=== PATIENT | female | born 1975 | race Caucasian/White ===

== ENCOUNTER → 2017-10-31 10:01 | Outpatient (CLI) | payer OTHER, SELFPAY ==
[2017-10-31 12:05] LABS: Vitamin D,25 Hydroxy 18.4 ng/mL (29.95-100.01)
== END ==
PROVIDERS: Family Provider Internal Medicine; PCP Internal Medicine; Visit Provider Internal Medicine
DX: E83.51 Hypocalcemia (principal)
CPT/HCPCS: 36415; 82306

== ENCOUNTER → 2017-11-04 13:48 | Outpatient (CLI) | payer OTHER, SELFPAY ==
--- NOTE | 2017-11-04 13:51 | BI_ITS ---
MAMMOGRAPHY - BILATERAL SCREENING REASON FOR EXAM: Female, 42 years old. Routine annual screening examination. PERTINENT HISTORY: Non-contributory. Prior right stereotactic biopsy and excisional breast biopsy. TECHNIQUE: Digital bilateral breast ashley (3D mammographic acquisition) in the CC and MLO projections. 2-D mediolateral oblique (MLO) and craniocaudad (CC) views of both breasts were obtained. CAD: Full Field Digital Mammography with Computer Added Detection was performed. COMPARISON: Comparison is made with prior study dated October 14, 2016 and June 23, 2015. FINDINGS: Breast Composition: There are scattered areas of fibroglandular density. There are no dominant masses or suspicious calcifications. Stable asymmetry of breast tissue were more breast tissue is seen in the upper outer quadrant of the left breast as compared to the right side. No other significant abnormalities are identified. There has been no significant change since the prior study. BI/SCREENING MAMM (CAD), BILAT IMPRESSION: Stable bilateral screening mammogram. Yearly follow-up mammogram recommended. (A) ASSESSMENT CATEGORY: BIRADS Category 2: Benign. A letter regarding these results will be sent to the patient by the facility within 30 days. Approximately 10% of breast cancers are not detected by mammography. A normal mammogram should not delay biopsy of a clinically suspicious abnormality. [id number] Electronically Signed: Valdez Burris MD at 10:21 EDT Tel [phone], Service support ,
== END ==
PROVIDERS: Family Provider Internal Medicine; PCP Internal Medicine; Visit Provider Obstetrics & Gynecology
DX: Z12.31 Encounter for screening mammogram for malignant neoplasm of breast (principal)
CPT/HCPCS: 77063; 77067

== ENCOUNTER → 2018-05-24 16:26 | Outpatient (CLI) | payer OTHER, SELFPAY ==
[2018-04-12 17:43] VITALS: BMI 32.3
--- NOTE | 2018-05-24 16:28 | US_ITS ---
STUDY: ULTRASOUND OF THE FEMALE PELVIS - COMPLETE REASON FOR EXAM: Female, 43 years old. Heavy menses. History of IUD. LMP: April 30, 2017. TECHNIQUE: Transabdominal. Patient refused transvaginal ultrasound. TECHNICAL QUALITY: Adequate. COMPARISON: None. FINDINGS: The uterus is anteverted and is in a midline position. The uterus measures 9.6 x 5.4 x 5.0 cm. cm. Normal uterine cervix. The endometrium measures 3 mm in thickness, and is hyperechoic. There is no demonstrated endometrial mass. There is an anterior 1.1 x 1.6 x 1.1 cm fibroid. I.U.D. - there is an IUD in satisfactory position. The right ovary is visualized. The right ovary measures 3.7 x 3.1 x 2.2 cm. There is a 1.6 x 1.3 x 1.5 cm dominant follicle versus small cyst. There is no visualized right adnexal mass or complex lesion. There is normal arterial and normal venous vascularity. The left ovary is visualized. The left ovary measures 2.7 x 2.2 x 1.8 cm. There is no left ovarian cyst or ovarian mass. There is no visualized left adnexal mass or complex lesion. There is normal arterial and normal venous vascularity. There is no fluid in the cul-de-sac. The pre void volume of the bladder was 329 ml. The urinary bladder appears grossly normal. Polycystic ovary disease: No. US/Pelvic (Non ) IMPRESSION: 1. Normal uterus. The IUD is in satisfactory position. 2. Dominant follicle in the right ovary without other evidence of ovarian abnormality. Electronically Signed: Cecil Starkey DO at 22:16 EDT Tel [phone], Service support ,
== END ==
PROVIDERS: Family Provider Internal Medicine; PCP Internal Medicine; Referring Provider Obstetrics & Gynecology; Visit Provider Obstetrics & Gynecology
DX: R10.2 Pelvic and perineal pain (principal)
CPT/HCPCS: 76856; 93976

== ENCOUNTER → 2018-09-08 07:41 | Outpatient (CLI) | payer OTHER, SELFPAY ==
[2018-04-12 17:43] VITALS: BMI 32.3
[2018-09-08 09:24] LABS: T4 Free Direct 1.06 ng/dL (0.76-1.46); Thyroid Stim Hormone (TSH) 1.27 uIU/mL (0.358-3.74)
== END ==
PROVIDERS: Family Provider Internal Medicine; PCP Internal Medicine; Referring Provider Obstetrics & Gynecology; Visit Provider Obstetrics & Gynecology
DX: N92.6 Irregular menstruation, unspecified (principal)
CPT/HCPCS: 36415; 84439; 84443

== ENCOUNTER → 2018-11-06 15:00 | Outpatient (CLI) | payer OTHER, SELFPAY ==
[2018-09-14 16:29] VITALS: BMI 29.8
--- NOTE | 2018-11-06 15:02 | BI_ITS ---
MAMMOGRAPHY - BILATERAL SCREENING REASON FOR EXAM: Female, 43 years old. Routine annual screening examination. PERTINENT HISTORY: Non-contributory. Prior right excisional breast biopsy and right stereotactic breast biopsy. Occasional lateral tenderness. TECHNIQUE: Digital bilateral breast cole (3D mammographic acquisition) in the CC and MLO projections. 2-D mediolateral oblique (MLO) and craniocaudad (CC) views of both breasts were obtained. CAD: Full Field Digital Mammography with Computer Added Detection was performed. COMPARISON: Comparison is made with prior study dated November 04, 2017 and October 14, 2016. FINDINGS: Breast Composition: The breasts are heterogeneously dense, which may obscure small masses. There are no dominant masses or suspicious calcifications. Stable asymmetry of breast tissue were more breast tissue is seen in the upper outer quadrant of the left breast as compared to the right side. No other significant abnormalities are identified. There has been no significant change since the prior study. BI/SCREEN MAMM (CAD) W/COLE BILAT IMPRESSION: Stable bilateral screening mammogram. Yearly follow-up mammogram recommended. (A) ASSESSMENT CATEGORY: BIRADS Category 2: Benign. A letter regarding these results will be sent to the patient by the facility within 30 days. Approximately 10% of breast cancers are not detected by mammography. A normal mammogram should not delay biopsy of a clinically suspicious abnormality. [id number] Electronically Signed: Valdez Burris, at 8:41 EDT , Service support ,
== END ==
PROVIDERS: Family Provider Internal Medicine; PCP Internal Medicine; Referring Provider Internal Medicine; Visit Provider Internal Medicine
DX: Z12.31 Encounter for screening mammogram for malignant neoplasm of breast (principal)
CPT/HCPCS: 77063; 77067

== ENCOUNTER → 2018-11-13 17:44 | Outpatient (CLI) | payer OTHER, SELFPAY ==
[2018-09-14 16:29] VITALS: BMI 29.8
== END ==
PROVIDERS: Family Provider Internal Medicine; PCP Internal Medicine; Referring Provider Obstetrics & Gynecology; Visit Provider Obstetrics & Gynecology
DX: Z12.4 Encounter for screening for malignant neoplasm of cervix (principal)

== ENCOUNTER → 2019-03-29 09:36 | Outpatient (CLI) | payer OTHER, SELFPAY ==
[2019-03-28 14:35] VITALS: BMI 30.7
--- NOTE | 2019-03-29 09:39 | EKG12_ITS ---
Test Reason : TACHY Blood Pressure : / mmHG Vent. Rate : 096 BPM Atrial Rate : 096 BPM P-R Int : 148 ms QRS Dur : 090 ms QT Int : 348 ms P-R-T Axes : 066 007 044 degrees QTc Int : 439 ms Normal sinus rhythm Low voltage QRS Borderline ECG Confirmed by TOMAS BRICE, ROSALIO ([id number]), film editor supervisor JESSICA JARVIS ([id number]) on 04/02/2019 2:03:59 PM Referred By: Melchor Mortensen Confirmed By:ANGELA MARIN MD
== END ==
PROVIDERS: PCP Internal Medicine; Referring Provider Nurse Practitioner Family; Visit Provider Nurse Practitioner Family
DX: R00.2 Palpitations (principal)
CPT/HCPCS: 93005

== ENCOUNTER → 2019-11-16 12:55 | Outpatient (CLI) | payer OTHER, SELFPAY ==
[2019-09-13 16:55] VITALS: BMI 30.7
--- NOTE | 2019-11-16 12:55 | BI_ITS ---
MAMMOGRAPHY - BILATERAL SCREENING REASON FOR EXAM: Female, 44 years old. Routine annual screening examination. PERTINENT HISTORY: Non-contributory. TECHNIQUE: Digital bilateral breast cole (3D mammographic acquisition) in the CC and MLO projections. 2-D mediolateral oblique (MLO) and craniocaudad (CC) views of both breasts were obtained. CAD: Full Field Digital Mammography with Computer Added Detection was performed. COMPARISON: Comparison is made with prior study 11/06/2018 and 10/27/2017. FINDINGS: Breast Composition: The breasts are heterogeneously dense, which may obscure small masses. There are no dominant masses or suspicious calcifications. No other significant abnormalities are identified. There has been no significant change since the prior study. BI/SCREEN MAMM (CAD) W/COLE BILAT IMPRESSION: Stable bilateral screening mammogram. Yearly follow-up mammogram recommended. (A) ASSESSMENT CATEGORY: BIRADS Category 1: Negative. A letter regarding these results will be sent to the patient by the facility within 30 days. Approximately 10% of breast cancers are not detected by mammography. A normal mammogram should not delay biopsy of a clinically suspicious abnormality. [id number] Electronically Signed: Valdez Burris, at 13:48 EDT , Service support ,
== END ==
PROVIDERS: PCP Internal Medicine; Referring Provider Internal Medicine; Visit Provider Internal Medicine
DX: Z12.31 Encounter for screening mammogram for malignant neoplasm of breast (principal)
CPT/HCPCS: 77063; 77067

== ENCOUNTER 2019-12-17 16:30 | Outpatient (RCR) | payer OTHER, SELFPAY ==
[2019-04-02 15:42] VITALS: BMI 30.7
--- NOTE | 2019-08-03 11:00 | MASS.EVAL ---
Massage Therapy Evaluation: Initial Evaluation Date: 07/30/2019 SUBJECTIVE: Lily is a 44 year old female who was referred to the [facility] facility for a massotherapy evaluation by Dr. Melchor Mortensen with the diagnosis of having muscle spasms. She presents today with the symptoms of pain, stiffness and tension in the neck and mid back area. h OBJECTIVE: Upon observation Lily has some posture issues with her head and shoulders forward from the neutral position in sitting and standing. After examination and palpation, I found Lily to have high muscle tension with tenderness and myofascial restrictions in her pectorals, sub occipitals, levator scapulae, trapezius, rhomboids, scalenes, and thoracic paraspinals. Her QL?s, lumbar paraspinals, piriformis, glute medius and minimus all were very tight with fascial restrictions, tender points and trigger points. The first treatment consisted of a one hour massage to her upper body with myofascial release, muscle stripping, trigger point compression techniques, and cervical manual traction. ASSESSMENT: I feel that Lily is a good candidate for massotherapy at this time. She had a favorable response to the first treatment with reduction in her muscle aches, pain and tension. She also had improvement in her cervical flexibility and low back flexibility. PLAN: The plan of care was reviewed with the patient. The patient is to be seen on an as needed basis for a total of ten sessions with the recommendation of one-two times per month for a one hour treatment.
--- NOTE | 2020-01-26 09:58 | MASS.DISCH ---
Massage Therapy Discharge Summary: Discharge Date: 01/26/2020 Lily was seen for a massotherapy evaluation on 07/30/2019 with the diagnosis of a muscle spasms. She was treated with four sessions of massage therapy consisting of deep pressure soft tissue techniques, myofascial release and trigger point compression to her cervical, thoracic, lower back and hips. Lily responded well to the therapy by reporting decreased tension and pain throughout her neck, shoulders, lower back and hips. Her goals for therapy were met throughout the treatment sessions. At this time this patient is being discharged from our care at [facility] facility.
== END 2019-12-17 19:00 | disposition home or self-care (01) ==
LOC: MASS 16:30
PROVIDERS: PCP Internal Medicine; Referring Provider Nurse Practitioner Family; Visit Provider Nurse Practitioner Family
DX: M62.838 Other muscle spasm (principal)
CPT/HCPCS: 97124

== ENCOUNTER → 2020-05-09 13:49 | Outpatient (CLI) | payer OTHER, SELFPAY ==
[2020-03-13 16:34] VITALS: BMI 32.3
[2020-05-12 20:06] LABS: Chlamydia By Nucleic Acid AMP Negative (Negative)
[2020-05-12 20:36] LABS: Gonococcus By Nucleic Acid AMP Negative (Negative)
== END ==
PROVIDERS: PCP Internal Medicine; Visit Provider Student in an Organized Health Care Education/Training Program
DX: Z11.3 Encounter for screening for infections with a predominantly sexual mode of transmission (principal)
CPT/HCPCS: 87491; 87591

== ENCOUNTER → 2020-11-20 15:33 | Outpatient (CLI) | payer OTHER, SELFPAY ==
[2020-09-11 16:33] VITALS: BMI 32.3
--- NOTE | 2020-11-20 15:33 | BI_ITS ---
MAMMOGRAPHY - BILATERAL SCREENING REASON FOR EXAM: Female, 45 years old. Routine annual screening examination. PERTINENT HISTORY: Non-contributory. TECHNIQUE: Digital bilateral breast cole (3D mammographic acquisition) in the CC and MLO projections. 2-D mediolateral oblique (MLO) and craniocaudad (CC) views of both breasts were obtained. CAD: Full Field Digital Mammography with Computer Added Detection was performed. COMPARISON: Comparison is made with prior study dated 11/16/2019 and 11/06/2018. FINDINGS: Breast Composition: The breasts are heterogeneously dense, which may obscure small masses. There are no dominant masses or suspicious calcifications. Stable asymmetry of breast tissue were more breast tissue is seen in the upper outer quadrant of the left breast as compared to the right side. Small benign-appearing bilateral axillary lymph nodes. No other significant abnormalities are identified. There has been no significant change since the prior study. BI/SCRN MAMM (CAD)W/COLE BILAT IMPRESSION: Stable bilateral screening mammogram. Yearly follow-up mammogram recommended. (A) ASSESSMENT CATEGORY: BIRADS Category 2: Benign. A letter regarding these results will be sent to the patient by the facility within 30 days. Approximately 10% of breast cancers are not detected by mammography. A normal mammogram should not delay biopsy of a clinically suspicious abnormality. [id number] Electronically Signed: Valdez Burris MD at 8:30 EDT , Service support ,
== END ==
PROVIDERS: PCP Internal Medicine; Referring Provider Internal Medicine; Visit Provider Internal Medicine
DX: Z12.31 Encounter for screening mammogram for malignant neoplasm of breast (principal)
CPT/HCPCS: 77063; 77067

== ENCOUNTER → 2020-11-28 09:07 | Outpatient (CLI) | payer OTHER, SELFPAY ==
[2020-11-28 09:54] LABS: D-Dimer Quantitative (DVT/PE) <= 0.27 FEU/ug/m (0.27-0.49)
[2020-11-28 09:56] LABS: Vitamin D,25 Hydroxy 29.6 ng/mL
[2020-11-28 10:02] LABS: AST(SGOT) 23 U/L (15-37); Alanine Aminotransfer ALT/SGPT 39 U/L (13-56); Albumin, Serum 3.5 g/dL (3.2-5.0); Alkaline Phosphatase 63 U/L (45-117); Bilirubin, Direct 0.13 mg/dL (0.00-0.30); Globulin 3.8 g/dL (2.2-4.2); Protein, Total 7.3 g/dL (6.4-8.2)
[2020-11-28 15:46] LABS: Anion Gap 7 (5-15); BUN 11 mg/dL (7-18); BUN/Creat Ratio 13.3 RATIO (10-20); Calcium,Total 8.8 mg/dL (8.5-10.1); Chloride 106 mmol/L (98-107); Creatinine, Serum 0.83 mg/dL (0.55-1.02); EST Glomerular Filtration Rate 79 mL/min (>60); Est Glom Filt Rate - Afr Amer 96 mL/min (>60); Glucose 104 mg/dL (74-106); Potassium 3.7 mmol/L (3.5-5.1); Sodium Level 138 mmol/L (136-145); Thyroid Stim Hormone (TSH) 1.23 uIU/mL (0.358-3.74)
== END ==
PROVIDERS: PCP Internal Medicine; Referring Provider Internal Medicine; Visit Provider Internal Medicine
DX: R00.0 Tachycardia, unspecified (principal); R10.11 Right upper quadrant pain; E83.51 Hypocalcemia; R00.2 Palpitations
CPT/HCPCS: 36415; 80048; 80076; 82306; 84439; 84443; 85379

== ENCOUNTER → 2020-11-28 14:02 | Outpatient (CLI) | payer OTHER, SELFPAY | PROVIDERS: PCP Internal Medicine; Visit Provider Internal Medicine | DX: Z00.00 Encounter for general adult medical examination without abnormal findings (principal) ==

== ENCOUNTER → 2020-12-02 09:19 | Outpatient (CLI) | payer OTHER, SELFPAY | PROVIDERS: PCP Internal Medicine; Referring Provider Internal Medicine; Visit Provider Internal Medicine | DX: R00.0 Tachycardia, unspecified (principal); R00.2 Palpitations | CPT/HCPCS: 93225; 93226 ==

== ENCOUNTER 2021-02-02 17:45 | Outpatient (RCR) | payer OTHER, SELFPAY ==
--- NOTE | 2020-12-22 09:36 | MASS.EVAL ---
Massage Therapy Evaluation: Initial Evaluation Date: 12/19/2020 SUBJECTIVE: Lily is a 45 year old female who was referred to the [facility] for a massotherapy evaluation by Dr. Vega with the diagnosis of back pain. She presents today with the symptoms of pain, stiffness and tension in the neck, head, mid back, and low back. Lily reports having a past medical history of neck and back pain. OBJECTIVE: Upon observation Lily has poor posture with her head and shoulders forward from the neutral position in sitting and standing. After examination and palpation, I found Lily to have high muscle tension with tenderness and myofascial restrictions in her sub occipitals, levator scapulae, trapezius, rhomboids, scalenes, and thoracic paraspinals. The first treatment consisted of a one hour massage to her upper body with myofascial release, muscle stripping, trigger point compression techniques, and cervical manual traction. ASSESSMENT: I feel that Lily is a good candidate for massotherapy at this time. She had a favorable response to the first treatment with reduction in her muscle aches, pain, and tension. She also had improvement in her cervical flexibility and low back flexibility. PLAN: The plan of care was reviewed with the patient. The patient is to be seen on an as needed basis for a total of ten sessions with the recommendation of once every month for a one hour treatment.
--- NOTE | 2021-02-03 09:55 | DS.PCM_ITS ---
Massage Therapy Discharge Summary: Discharge date 02/03/2021 Lily was seen for a massotherapy evaluation on 12/19/20 with the diagnosis of back pain. The patient was treated with four sessions of massage, consisting of one hour treatments to the upperbody using deep pressure. The patient responded well to treatments. At this time I am discharging the patient from our care at [facility].
== END 2021-02-02 19:00 | disposition home or self-care (01) ==
LOC: MASS 17:45
PROVIDERS: PCP Internal Medicine; Visit Provider Internal Medicine
DX: M54.9 Dorsalgia, unspecified (principal)
CPT/HCPCS: 97124

== ENCOUNTER 2021-03-10 16:13 | Outpatient (CLI) | payer OTHER, SELFPAY ==
[2021-03-13 15:04] LABS: HPV APTIMA, High Risk Negative (Negative)
== END 2021-03-10 23:59 | disposition short-term general hospital (02) ==
LOC: LABSPEC 16:26
PROVIDERS: PCP Internal Medicine; Visit Provider Student in an Organized Health Care Education/Training Program
DX: Z12.4 Encounter for screening for malignant neoplasm of cervix (principal)
CPT/HCPCS: 87624; 88175; G0145

== ENCOUNTER → 2021-11-05 | Outpatient (CLI) | payer OTHER, SELFPAY ==
--- NOTE | 2021-11-05 15:15 | RAD_ITS ---
EXAM: XR CHEST, 2 VIEWS CLINICAL INDICATION: Cough, Chest congestion TECHNIQUE: Frontal and lateral views of the chest. This report was created using [employer] report generation technology. COMPARISON: None. FINDINGS: LUNGS AND PLEURAL SPACES: Unremarkable. No consolidation or edema. No pneumothorax. No effusion. HEART: Unremarkable. Cardiac silhouette not enlarged. MEDIASTINUM: Central airways and mediastinal contour are unremarkable. BONES/JOINTS: No acute osseous abnormality. Very mild thoracic degenerative spurring. SOFT TISSUES: Unremarkable. RAD/Chest PA and Lateral IMPRESSION: No radiographic evidence of acute cardiopulmonary disease. Electronically Signed: Osiel Stahl MD at 0:25 EDT ,
== END | disposition home or self-care (01) ==
PROVIDERS: PCP Internal Medicine; Referring Provider Internal Medicine; Visit Provider Internal Medicine
DX: R05.9 Cough, unspecified (principal); R09.89 Other specified symptoms and signs involving the circulatory and respiratory systems
CPT/HCPCS: 71046

== ENCOUNTER → 2021-12-01 | Outpatient (CLI) | payer OTHER, SELFPAY ==
--- NOTE | 2021-12-01 07:35 | BI_ITS ---
MAMMOGRAPHY - BILATERAL SCREENING REASON FOR EXAM: Female, 46 years old. Routine annual screening examination. PERTINENT HISTORY: Non-contributory. Prior right excisional breast biopsy and stereotactic breast biopsy. TECHNIQUE: Digital bilateral breast cole (3D mammographic acquisition) in the CC and MLO projections. 2-D mediolateral oblique (MLO) and craniocaudad (CC) views of both breasts were obtained. CAD: Full Field Digital Mammography with Computer Added Detection was performed. COMPARISON: Comparison is made with prior study dated 11/20/2020 and 11/16/2019. FINDINGS: Breast Composition: The breasts are heterogeneously dense, which may obscure small masses. There are no dominant masses or suspicious calcifications. Once again, there is asymmetry of breast tissue with more breast tissue seen in the upper-outer quadrant of the left breast as compared to the right side. No other significant abnormalities are identified. There has been no significant change since the prior study. BI/SCRN MAMM (CAD)W/COLE BILAT IMPRESSION: Stable bilateral screening mammogram. Yearly follow-up mammogram recommended. (A) ASSESSMENT CATEGORY: BIRADS Category 2: Benign. A letter regarding these results will be sent to the patient by the facility within 30 days. Approximately 10% of breast cancers are not detected by mammography. A normal mammogram should not delay biopsy of a clinically suspicious abnormality. [id number] Electronically Signed: Valdez Burris MD at 9:57 EDT ,
== END | disposition home or self-care (01) ==
PROVIDERS: PCP Internal Medicine; Visit Provider Internal Medicine
DX: Z12.31 Encounter for screening mammogram for malignant neoplasm of breast (principal)
CPT/HCPCS: 77063; 77067

== ENCOUNTER → 2021-12-04 | Outpatient (CLI) | payer OTHER, SELFPAY ==
--- NOTE | 2021-12-04 12:51 | CT_ITS ---
STUDY: CT CHEST WITH CONTRAST REASON FOR EXAM: Female, 46 years old. Cough, Shortness of bed RADIATION DOSAGE (If Supplied By Facility): CTDIvol = ( 14.87 ) mGy, DLP = ( 451.19 ) mGycm TECHNIQUE: Transaxial imaging was performed following intravenous administration of IV 100mL Isovue-300. Multiplanar coronal and sagittal images were reformatted. Individualized dose optimization techniques were used for this CT. COMPARISON: No relevant priors. FINDINGS: CHEST The lungs are normal. There is no demonstrated pleural abnormality. Normal heart and pericardium. Normal mediastinum. Normal hilar regions. Normal unenhanced pulmonary arteries. Normal aorta arch and descending thoracic aorta. There are mild degenerative changes of the thoracic spine. Small hiatal hernia. CT/Chest WITH Contrast IMPRESSION: Normal enhanced CT chest T abdomen examination. Electronically Signed: Valdez Burris MD at 13:14 EDT ,
== END | disposition home or self-care (01) ==
LOC: CT 12:48
PROVIDERS: PCP Internal Medicine; Visit Provider Internal Medicine
DX: R05.9 Cough, unspecified (principal); R09.89 Other specified symptoms and signs involving the circulatory and respiratory systems; R06.02 Shortness of breath
CPT/HCPCS: 71260; Q9967

== ENCOUNTER → 2021-12-07 | Outpatient (CLI) | payer OTHER, SELFPAY ==
--- NOTE | 2021-12-08 10:00 | PFT ---
INTRODUCTION: The patient is a 46-year-old female that presents for pulmonary function studies secondary to a diagnosis of cough. Respiratory therapy reported good patient effort. Bronchodilators were used during testing. INTERPRETATION: Forced expiration spirometry demonstrates no evidence of a large airways obstructive ventilatory defect. There was no significant response to aerosolized bronchodilators. Spirograms are of good quality and plateau gradually indicating slow emptying of the lungs. Body plethysmography was performed and reveals lung volumes to be within normal limits. Diffusing capacity by single breath CO was also within normal limits. IMPRESSION: Grossly normal pulmonary function studies.
== END | disposition home or self-care (01) ==
LOC: PSN 07:58
PROVIDERS: PCP Internal Medicine; Referring Provider Internal Medicine; Visit Provider Internal Medicine
DX: R05.9 Cough, unspecified (principal); R06.02 Shortness of breath
CPT/HCPCS: 94060; 94726; 94729

== ENCOUNTER 2022-03-15 08:09 | Emergency (ER) | payer OTHER, SELFPAY ==
[2022-03-15 08:10] VITALS: BP 142/83; PULSE 100; RESP 18; TEMP 36.1; O2SAT 96; BMI 34.3
--- NOTE | 2022-03-15 08:14 | US_ITS ---
EXAM: US ABDOMEN LIMITED, RIGHT UPPER QUADRANT CLINICAL INDICATION: RUQ pain TECHNIQUE: Real-time ultrasound of the right upper quadrant with image documentation. This report was created using [employer] report generation technology. COMPARISON: None. FINDINGS: LIVER: Normal. There is normal echotexture. No focal hepatic lesion. No intrahepatic biliary ductal dilation. GALLBLADDER: 16 mm stone noted within the gallbladder. No gallbladder wall thickening is demonstrated. No pericholecystic fluid. Positive sonographic Mckee''s sign. COMMON BILE DUCT: Unremarkable as visualized. The proximal common bile duct is within normal limits for the patient''s age. PANCREAS: Unremarkable as visualized. No focal abnormality is demonstrated in the pancreas. No pancreatic ductal dilatation. RIGHT KIDNEY: Normal. There is no hydronephrosis. No shadowing calculus. No focal lesion or perinephric collection is demonstrated. US/Gallbladder IMPRESSION: Cholelithiasis Electronically Signed: Tr Perez MD at 9:33 EST ,
[2022-03-15 08:27] LABS: Absolute Lymphocyte Count 2.07 X10^3/uL (0.83-4.51); Absolute Neutrophil Count 4.9 X10^3/uL (2.0-7.7); Basophil# 0.02 X10^3/uL; Basophil% 0.3 % (0-1); Eosinophil# 0.19 X10^3/uL; Eosinophils% 2.5 % (0-5); Hematocrit 43.3 % (37-47); Hemoglobin 14.8 g/dL (12.0-15.0); Lymphocyte # 2.07 X10^3/ul (0.83-4.51); Lymphocyte % 27.1 % (19-41); Mean Corp Hgb Conc 34.2 g/dL (32-36); Mean Corpuscular Hgb 30.5 pg (27.0-32.0); Mean Corpuscular Volume 89.1 fL (81-99); Mean Platelet Vol. 10.2 fl (6.2-12.0); Monocyte# 0.41 X10^3/uL; Monocyte% 5.4 % (0-10); NRBC Flagged by Analyzer 0 % (0-5); Neutrophil # 4.92 X10^3/uL (2.7-7.7); Neutrophil % 64.4 % (47-70); Platelet Count 302 K/mm3 (150-450); RBC Distribution Width SD 39.2 fl (35.1-43.9); Red Blood Count 4.86 M/mm3 (4.2-5.4); White Blood Count 7.6 K/mm3 (4.4-11.0)
[2022-03-15 08:45] LABS: AST(SGOT) 19 U/L (15-37); Alanine Aminotransfer ALT/SGPT 20 U/L (13-56); Albumin, Serum 3.8 g/dL (3.2-5.0); Alkaline Phosphatase 55 U/L (45-117); Anion Gap 7 (5-15); BUN 20 mg/dL (7-18); BUN/Creat Ratio 27.7 RATIO (10-20); Bilirubin, Direct 0.14 mg/dL (0.00-0.30); Calcium,Total 9.4 mg/dL (8.5-10.1); Chloride 109 mmol/L (98-107); Creatinine, Serum 0.72 mg/dL (0.55-1.02); EST Glomerular Filtration Rate 92 mL/min (>60); Est Glom Filt Rate - Afr Amer 112 mL/min (>60); Globulin 3.5 g/dL (2.2-4.2); Glucose 101 mg/dL (74-106); Lipase 200 U/L (73-393); Potassium 3.9 mmol/L (3.5-5.1); Protein, Total 7.3 g/dL (6.4-8.2); Sodium Level 140 mmol/L (136-145)
[2022-03-15 08:47] LABS: Internal QC Validated? YES +Cl - CLEAR BKGD; Pregnancy, Serum, hCG Quali. NEGATIVE Negative
--- NOTE | 2022-03-15 09:46 | EDS_ITS ---
HPI History of Present Illness Chief Complaint: Abd Pain Informant: patient Onset/Context/Timing Onset: Yesterday Context: Gradual Onset Timing: Waxes and wanes Current Severity: Moderate Maximum Severity: Moderate Narrative Narrative: Patient presents secondary to right upper quadrant abdominal pain. She has had attacks in the past that she attributed to gallbladder. This particular episode started last evening and she had difficulty finding a position of comfort. No fever or chills. No vomiting. PFSH PFSH Medical History Anxiety and depression Chronic neck pain Colon cancer screening Health care maintenance Hypocalcemia Obesity Palpitation Post viral syndrome Preventative health care Tachycardia Home Medications levonorgestrel 21 mcg/24 hours (8 yrs) 52 mg intrauterine device (Mirena) 1 insert intrauterine ONCE 11/01/17 [History Last Taken Unknown] albuterol sulfate 90 mcg/actuation aerosol inhaler 1 - 2 puff inhalation Q6H PRN shortness of breath or wheezing #8.5 grams 09/22/21 [Rx Last Taken Unknown] omeprazole 40 mg capsule,delayed release 40 mg PO DAILY #90 caps 11/23/21 [Rx Last Taken Unknown] fluticasone furoate 100 mcg-vilanterol 25 mcg/dose inhalation powder (Breo Ellipta) 1 inh inhalation Q24H #60 ea 12/09/21 [Rx Last Taken Unknown] cetirizine 10 mg capsule (Zyrtec) 10 mg PO DAILY 03/10/22 [History Last Taken Unknown] Allergy/AdvReac Type Severity Reaction Status Date / Time No Known Allergies Allergy Verified 03/15/22 08:10 Family History Mother Blood clot in vein Father Hypertension High cholesterol Surgical History History of benign breast biopsy History of D&C Social History Smoking Status: Never smoker Tobacco: How many years used: 2 how long ago did patient quit smokin alcohol intake: current alcohol intake frequency: holidays/special occasions only what type of physical activity do you participate in: walking frequency: 3-4 times per week ROS ROS ED Constitutional Constitutional ED: Denies chills or fever(s) Eyes Eyes: Denies change in vision or discharge from eye(s) ENT ENT ED: Denies discharge from eye(s), rhinorrhea or sore throat Cardiovascular Cardiovascular: Denies chest pain or palpitations Respiratory/Chest Respiratory/Chest: Denies cough or dyspnea Gastrointestinal Gastrointestinal: Reports abdominal pain and nausea; Denies diarrhea or vomiting Genitourinary Genitourinary ED: Denies dysuria Musculoskeletal Musculoskeletal: Denies back pain or extremity pain Integumentary Denies Abrasions or rash Neurologic Neurologic: Denies headache(s) or weakness Psychiatric Psychiatric: Denies anxiety or depression Allergic/Immunologic Allergic/Immunologic ED: Denies lip swelling or urticaria EXAM Physical Exam Const Vital Signs: 03/15/22 08:10 Temperature 96.9 F L Temperature Source Temporal Pulse Rate 100 Respiratory Rate 18 Blood Pressure 142/83 H Blood Pressure Mean 102 Pulse Ox 96 Oxygen Delivery Method Room Air Positive well nourished and well developed General Appearance ED: well developed HEENT Reports normocephalic and head/scalp atraumatic Eyes PERRL and EOMs intact bilaterally Neck supple Chest Wall inspection of chest normal and palpation of chest normal Resp normal respiratory effort and clear to auscultation bilaterally Cardio regular rate and regular rhythm GI GI Narrative: Right upper quadrant tenderness to palpation. No guarding or rebound. Palpation: soft Extremity normal to inspection Neuro oriented x3 and no sensory deficits noted Sensorium / Orientation: alert Motor Exam: strength 5/5 throughout Psych mental status grossly normal Skin no rashes or lesions noted MDM MDM MDM Narrative Medical decision making narrative: Lab work obtained to evaluate for leukocytosis and liver dysfunction. Right upper quadrant ultrasound obtained to evaluate for gallbladder disease. Lab Data Attestation: I reviewed the patient's lab results. Labs: Laboratory Results - last 24 hr 03/15/22 03/15/22 03/15/22 08:20 08:20 08:20 WBC 7.6 RBC 4.86 Hgb 14.8 Hct 43.3 MCV 89.1 MCH 30.5 MCHC 34.2 RDW Std Deviation 39.2 RDW Coeff of [place] 12.0 Plt Count 302 MPV 10.2 Immature Gran % (Auto) 0.300 Neut % (Auto) 64.4 Lymph % (Auto) 27.1 Baxter % (Auto) 5.4 Eos % (Auto) 2.5 Baso % (Auto) 0.3 Absolute Neuts (auto) 4.9 Absolute Lymphs (auto) 2.07 Nucleated RBC % 0 Sodium 140 Potassium 3.9 Chloride 109 H Carbon Dioxide 24.0 Anion Gap 7 BUN 20 H Creatinine 0.72 Estim Creat Clear Calc 91.40 Est GFR (MDRD) Af Amer 112 Est GFR (MDRD) Non-Af 92 BUN/Creatinine Ratio 27.7 H Glucose 101 Calcium 9.4 Total Bilirubin 0.40 Direct Bilirubin 0.14 AST 19 ALT 20 Alkaline Phosphatase 55 Total Protein 7.3 Albumin 3.8 Globulin 3.5 Lipase 200 Serum , Qual NEGATIVE Radiography Diagnostic Testing: Clinical Impression(s) from Imaging Studies Gallbladder Ultrasound 03/15/22 08:14 IMPRESSION: Cholelithiasis Electronically Signed: Tr Perez MD at 9:33 EST , Treatment and Re-Evaluation Narrative: Lab work is unremarkable with normal white count and no left shift. Chemistry studies are normal. LFTs are normal at this time. Right upper quadrant ultrasound reveals cholelithiasis with a 16 mm stone. No pericholecystic fluid or wall thickening at this time. Test results discussed with the patient. She will follow-up with surgery as an outpatient on an elective basis. Return instructions are given. Discharge Plan Triage Chief Complaint: Abd Pain ED Provider: Ernestine Griffiths Dx/Rx/DC Orders Clinical Impression: Biliary colic Instructions: ED Gallstones with Biliary Colic Prescriptions: No Action Mirena 20 mcg/24 hr (5 years) intrauterine device 1 insert Intrauterine ONCE albuterol sulfate 90 mcg/actuation HFA aerosol inhaler 1 - 2 puff inhalation Q6H PRN (Reason: shortness of breath or wheezing) Qty: 8.5 1RF fluticasone furoate-vilanterol [Breo Ellipta] 100-25 mcg/dose blister with device 1 inh inhalation Q24H Qty: 60 3RF Rx Instructions: after inhalation, rinse mouth with water and spit out; do not swallow Zyrtec 10 mg capsule 10 mg PO DAILY omeprazole 40 mg capsule,delayed release(DR/EC) 40 mg PO DAILY Qty: 90 1RF Primary Care Provider: Arnaldo Vega Referrals: Simba Parks MD [Med Staff - Active Staff] - As Needed Arnaldo Vega MD [Primary Care Provider] - Disposition Disposition: Home, Self Care
== END 2022-03-15 09:53 | disposition home or self-care (01) ==
PROVIDERS: Emergency Provider Emergency Medicine; PCP Internal Medicine; Visit Provider Emergency Medicine
DX: K80.50 Calculus of bile duct without cholangitis or cholecystitis without obstruction (principal); Z87.891 Personal history of nicotine dependence
CPT/HCPCS: 76705; 80048; 80076; 83690; 84703; 85025; 99283

== ENCOUNTER 2022-04-13 10:17 | Day surgery (SDC) | payer OTHER, SELFPAY ==
[2022-04-13 10:52] LABS: Internal QC Validated? YES +Cl - CLEAR BKGD; Pregnancy, Urine Negative Negative
[2022-04-13] MEDS: Lactated Ringers 1,000 ML 15 ML IV (10:52)
[2022-04-13 10:57] VITALS: BP 125/56; PULSE 74; RESP 16; TEMP 36.9; O2SAT 98; BMI 34.6
--- NOTE | 2022-04-13 10:59 | PCM.HP.BLA ---
History and Physical Date of Admission: 04/13/22 Intake Vital Signs ? 03/15/2307:10 03/17/2307:46 Height 5 ft 6 in 5 ft 6 in Weight: 213 lb 214 lb BMI 34.3 34.5 BP 142/83 H 108/73 Blood Pressure Location ? Rt brachial Position ? Sitting Respiration 18 17 Pulse 100 97 Pulse Source ? Monitor Temp 96.9 F L 97.3 F L Temp Source Temporal Temporal Pulse Oximetry (%) 96 97 Oxygen Delivery Method ? room air Intake Visit Reasons:?GALLSTONES Chief Complaint: gallstones Is patient in pain?: No Allergies No Known Allergies Allergy (Verified 03/17/22 08:49) Medications levonorgestrel 21 mcg/24 hours (8 yrs) 52 mg intrauterine device (Mirena) 1 insert intrauterine ONCE 11/01/17 [History Confirmed 03/17/22] albuterol sulfate 90 mcg/actuation aerosol inhaler 1 - 2 puff inhalation Q6H PRN shortness of breath or wheezing #8.5 grams 09/22/21 [Rx Confirmed 03/17/22] omeprazole 40 mg capsule,delayed release 40 mg PO DAILY #90 caps 11/23/21 [Rx Confirmed 03/17/22] fluticasone furoate 100 mcg-vilanterol 25 mcg/dose inhalation powder (Breo Ellipta) 1 inh inhalation Q24H #60 ea 12/09/21 [Rx Confirmed 03/17/22] cetirizine 10 mg capsule (Zyrtec) 10 mg PO DAILY 03/10/22 [History Confirmed 03/17/22] PFSH Medical History? Anxiety and depression Chronic neck pain Colon cancer screening Health care maintenance Hypocalcemia Obesity Palpitation Post viral syndrome Preventative health care Tachycardia Surgical History? History of benign breast biopsy History of D&C Family History? Mother Blood clot in veinFather Hypertension High cholesterol Social History? Smoking Status:? Never smoker Tobacco: How many years used:? 2 how long ago did patient quit smoking:? 1998 alcohol intake:? current alcohol intake frequency: holidays/special occasions only what type of physical activity do you participate in:? walking frequency:? 3-4 times per week HPI HPI HPI: Patient is a 47-year-old female with right upper quadrant pain.? She says the pain radiates to the back.? She says it happens with fatty meals.? This been going on for several years.? No nausea or vomiting at this time.? She denies any fevers or chills.? Currently she is not having pain or low-level pain. ROS General General: No weight change, appetite, fatigue, colon cancer, breast cancer or weakness HEENT HEENT: No difficulty swallowing, eye injury, eye surgery, swollen glands or hoarseness Endo Endocrine: No thyroid disease, diabetes mellitus, thyroid cancer, Hair loss, heat intolerance or cold intolerance Skin Skin: No rash or changing moles Musc Musculoskeletal: No back problems, arthritis, rheumatoid arthritis, gout or joint pain Cardio Cardiovascular: No murmur, pacemaker, heart disease, atrial fibrillation, high blood pressure, heart attack, heart stent, palpitations, shortness of breat with exertion or chest pain Psych Psychiatric: No depression, anxiety or hearing voices Resp Respiratory: No shortness of breath, No sleep apnea, No cough, No COPD, No asthma, No emphysema and No wheezing Gastro Gastrointestinal: No abdominal pain, No nausea or vomiting, No diarrhea, No constipation, No blood in stool, No acid reflux, No hemorrhoids, No ulcers, Yes gallbladder problem and No black,tarry stools Dinh Hematologic: No blood thinners, No blood disorders, No bleeding, No anemia and No blood clots Neuro Neurologic: No system reviewed and no additional complaints, except as documented, No as per HPI, No abnormal gait, No abnormal hearing, No abnormal movements, No abnormal speech, No behavioral changes, No burning sensations, No confusion, No convulsions, No disequilibrium, No dizziness, No localized weakness, No frequent falls, No headache(s), No lack of coordination, No loss of vision, No memory loss, No numbness, No other visual disturbances, No radicular pain, No restless legs, No sensory deficit, No syncope, No tingling, No tremor(s), No weakness and No other Exam Const General: cooperative Orientation: alert and oriented x3 HENMT Head: normal to inspection Neck Neck: normal visual inspection and full ROM Chest Chest palpation & inspection: normal inspection of the chest Resp Effort & Inspection: normal respiratory effort Auscultation: clear to auscultation bilaterally Cardio Rate: regular rate Rhythm: regular rhythm GI Inspection: non-distended Palpation: soft and nontender Skin General: no rashes or lesions noted Neuro General: patient alert and patient oriented x3 Extrem General: full ROM Psych Appearance: grossly normal Mental Status: mental status grossly normal Assessment and Plan Assessment and Plan (1) Biliary colic: ?Status:?Acute ?Plan: The patient has cholelithiasis with a 1.6 cm stone in the gallbladder.? Her symptoms coincide with biliary colic and I recommend laparoscopic cholecystectomy. I discussed the procedure in detail with the patient.? I discussed the risks, benefits, and alternatives of the procedure.? I discussed the risks including but not limited to bleeding, infection, injury to surrounding organs such as the liver, bile duct, bowels.? I did discuss the possibility of having to convert to an open procedure as well as the possibility that if any injuries occurred this may necessitate further surgery at a tertiary care center. Simba Parks MD Pager: [facility] [address] [place] [address], [address] [place] [address] Office: Insert H&P no changes
--- NOTE | 2022-04-13 11:00 | RAD_ITS ---
STUDY: INTRAOPERATIVE GLANDULAR. REASON FOR EXAM: Female, 47 years old. Laparoscopic cholecystectomy. FLUOROSCOPY TIME (if supplied): ( 6.7 seconds ) minutes/seconds. 2.87 mGy TECHNIQUE: An intraoperative cholangiogram was performed by the surgeon. Imaging was submitted. COMPARISON: None. FINDINGS: The intra and extrahepatic biliary ducts are unremarkable. No abnormality is seen. RAD/Cholangiogram/ O R,Initial IMPRESSION: Unremarkable intraoperative cholangiogram. Electronically Signed: Valdez Burris MD at 17:46 EST ,
[2022-04-13] MEDS: Cefotetan 2 GM in 0.9% NS 100 ML IV (11:32)
--- NOTE | 2022-04-13 12:00 | GALL_PTH ---
PATIENT: KALLI LONDONO LOC: [facility] [place] U#:[id number] AGE/SX: 47/F ROOM: RE04/13/[address]: Dr. Simba Parks MD : 1975 BED: DIS: 04/13/2022 SPEC #: [id number] RECD: 04/13/22 13:34 STATUS: WILL HALLPage #: [id number] DARREL: 04/13/22 12:[address]: Simba Parks DEPT: SURGICAL PATHOLOGY RECD BY: Jeff Ball ENTERED: 04/14/22 07:58 SP TYPE: MANDI DANIELS DR: Dr. Arnaldo Vega MD Tissues: Gallbladder, NOS Procedures: Surgery Specimen Level III HEADER OPERATION: Laparoscopic cholecystectomy with IOC PRE-OP DIAGNOSIS: Biliary colic TISSUE SUBMITTED: Gallbladder MICROSCOPIC DIAGNOSIS Gallbladder, cholecystectomy: Chronic cholecystitis and cholelithiasis. AM:chioma 04/15/2022 MICROSCOPIC DESCRIPTION Slides are reviewed. GROSS DESCRIPTION Received is one container labeled with the patient's name and designated gallbladder. The specimen consists of a gallbladder measuring 10.0 cm in length and up to 3.5 cm in diameter. The external surface is pink-lara, smooth and glistening for the most part. Focally it is granular, hemorrhagic and contains cautery artifact. The gallbladder contains green-yellow mucoid bile and one ovoid, greenish-yellow stone measuring 2.5 x 1.5 x 1.5 cm. The mucosa is bile-stained and without any mass lesions. The gallbladder wall measures up to 0.2 cm in thickness. Global Security Architect sections from the gallbladder and the cystic duct are submitted in one cassette. / SJ:chioma 04/14/2022 TC:3 [facility]: [id number]
[2022-04-13] MEDS: Bupiv/Epi 0.25% 30 ML Vial (12:30)
[2022-04-13 12:48] VITALS: BP 125/56; BP 127/75; PULSE 95; RESP 16; TEMP 36.8; O2SAT 92
--- NOTE | 2022-04-13 12:53 | OP.PCM_ITS ---
Report of Operation Date of Procedure: 04/13/22 Pre-Operative Diagnosis: Biliary colic and cholelithiasis Post-Operative Diagnosis: Same Surgery/Procedure Performed:: Laparoscopic cholecystectomy with interoperative cholangiogram Specimen's removed: Gallbladder and contents Description of Procedure: After obtaining informed consent patient was brought back to the operating room. General anesthesia was induced. The abdomen was prepped and draped in usual sterile fashion. A small midline incision was made superior to the umbilicus and deepened to the level of fascia. The fascia was elevated and incised. Next the peritoneum was elevated and incised in the same fashion. Finger sweep was performed and the Foreman trocar was placed into the abdomen. The balloon was inflated. The abdomen was inflated to 15 mmHg. Next a camera was introduced into the abdomen and the abdomen was inspected. Next under direct visualization three 5-mm ports were placed one subxiphoid and 2 subcostal. Next the gallbladder was elevated and retracted toward the right shoulder. The peritoneum was stripped from the gallbladder. The infundibulum was located and retracted laterally. Next the triangle of Calot was dissected and the cystic duct and cystic artery were identified. Cholangiograms were performed. The Cervantes clamp was used to clamp across the infundibulum and the catheter needle was inserted into the gallbladder. Under fluoroscopy contrast was instilled into the gallbladder and the common duct, cystic duct as well as proximal hepatic ducts were identified. There was good filling of the duodenum. There were no filling defects noted in the common bile duct. The clamp was removed as well as the needle and the infundibulum was grasped once more. Three hemolock clips were placed across the cystic duct. The cystic duct was then divided leaving 2 clips on the stump. The cystic artery was clipped and divided in the same fashion. The hook cautery was then used to take the gallbladder off of the gallbladder bed. Hemostasis was obtained. Gallbladder fossa was irrigated and no active bleeding or bile leakage was noted. Surgicel powder was placed in the gallbladder fossa. Next the camera was introduced in the subxiphoid port. An Endopouch bag was placed through the umbilical port and the gallbladder was placed into it. The gallbladder was then removed through the umbilical incision. The camera was then reinserted through the umbilical port. The gallbladder fossa was inspected once more and noted to be hemostatic with no leaking bile. The abdomen was suctioned dry. The 5 mm ports were removed under direct visualization. The umbilical port was then removed and the air was removed from the abdomen. Next using an 0 Vicryl suture the umbilical fascia was closed in a tumscr-dn-cfeap fashion. The umbilical port site was irrigated local anesthetic was administered to all the incisions. All the incisions were closed with interrupted subcuticular 4-0 Monocryl sutures followed by Steri- Strips and dressings. The patient was awoken and taken to PACU in stable condition. Admit VTE Documentation VTE Mechan Device Prophylaxis: SCD's
--- NOTE | 2022-04-13 12:54 | DCINST_ITS ---
Discharge Instructions Procedure Gallbladder Diet Discharge Diet: Light diet - advance as tolerated Activity Discharge Activity: May Not Drive (for 2-3 days or while taking narcotic pain medications.) and - (Do not drive, work heavy equipment or sign legal documents for 24 hours.) May shower in (days): 1 Lifting Restrictions: 20 lbs for 2 weeks Additional Activity Instructions:: Pain medication may cause nausea. You should typically eat light foods as you take your pain medications. Pain medication may also cause constipation. If this is a problem for you, please discuss with your doctor. Dressing / Incision Call your doctor if your incision/area has: Continuous Slow Oozing, Sudden Increased Bleeding, Increased Pain/ Swelling, Increased Redness and Foul Smelling Discharge Call your doctor if you observe: Fever of 101 or Higher Suture Line Care: Avoid Pulling/Pushing and Avoid Pinching/Bending Remove Dressing in: 2 days Additional Dressing/Incision Instructions:: Leave operative bandaids on for 2 days. When you remove dressing, leave Steri-Strips on until your follow-up appointment, or until the Steri-Strips fall off on their own. Follow Up Care Please Follow Up With: Simba Parks MD When: Please call to schedule 2 week follow up appointment. [phone] Test Results: Test results from this visit will be discussed in further detail at your follow- up appointment, if applicable. Discharge Plan Admission Attending Provider: Simba Parks Primary Care Provider: Arnaldo Vega Instructions Additional Instructions / Restrictions: Ibuprofen, Tylenol for pain, oxycodone for breakthrough. Stool softeners as needed. Discharge Orders/Prescriptions Prescriptions: New oxycodone 5 mg tablet 5 - 10 mg PO Q6H PRN (Reason: pain) 5 Days Qty: 30 0RF No Action Mirena 20 mcg/24 hr (5 years) intrauterine device 1 insert Intrauterine ONCE albuterol sulfate 90 mcg/actuation HFA aerosol inhaler 1 - 2 puff inhalation Q6H PRN (Reason: shortness of breath or wheezing) Qty: 8.5 1RF fluticasone furoate-vilanterol [Breo Ellipta] 100-25 mcg/dose blister with device 1 inh inhalation Q24H Qty: 60 3RF Rx Instructions: after inhalation, rinse mouth with water and spit out; do not swallow Zyrtec 10 mg capsule 10 mg PO DAILY calcium carbonate-vitamin D3 [Calcium 500 + D (D3)] 500 mg-3.125 mcg (125 unit) Tablet 1 tab PO DAILY omeprazole 40 mg capsule,delayed release(DR/EC) 40 mg PO DAILY Qty: 90 1RF Referrals / Follow Up: Arnaldo Vgea MD [Primary Care Provider] - Disposition Disposition (needs filled in before D/C Order can be placed): Home, Self Care
[2022-04-13 13:00] VITALS: BP 120/65; BP 125/56; PULSE 88; RESP 16; O2SAT 95
[2022-04-13 13:15] VITALS: BP 108/53; BP 125/56; PULSE 92; RESP 16; O2SAT 95
[2022-04-13 13:23] VITALS: BP 103/70; BP 125/56; PULSE 94; RESP 16; TEMP 36.8; O2SAT 95
[2022-04-13] MEDS: oxyCODONE 5 MG Tablet PO (14:03)
[2022-04-13] MEDS: Acetaminophen 325 MG Tablet 650 MG PO (14:04)
[2022-04-13 15:10] VITALS: BP 115/78; BP 125/56; PULSE 76; RESP 14; TEMP 37.3; O2SAT 94
== END 2022-04-13 15:14 | disposition home or self-care (01) ==
LOC: SDC 10:20 → AC 10:22
PROVIDERS: Anesthesiology; PCP Internal Medicine; Referring Provider Surgery; Visit Provider Surgery
PROC: (CPT 47610; principal; 2022-04-13 11:45)
DX: K80.10 Calculus of gallbladder with chronic cholecystitis without obstruction (principal); E55.9 Vitamin D deficiency, unspecified; K21.9 Gastro-esophageal reflux disease without esophagitis; J45.909 Unspecified asthma, uncomplicated; Z87.891 Personal history of nicotine dependence; Z79.899 Other long term (current) drug therapy
CPT/HCPCS: 47563; 00790; 74300; 76000; 81025; 88304; 93005; J7120; J2405

== ENCOUNTER → 2022-09-06 | Outpatient (CLI) | payer OTHER, SELFPAY ==
[2022-09-06 09:19] LABS: Vitamin B12 228 pg/mL (211-911); Vitamin D,25 Hydroxy 31.6 ng/mL
[2022-09-06 09:31] LABS: Thyroid Stim Hormone (TSH) 1.26 uIU/mL (0.358-3.74)
[2022-09-10 02:07] LABS: Alternaria alternata <0.10 kU/L (Class 0); Bermuda Grass 0.41 kU/L (Class I); Dog Epithelia 3.49 kU/L (Class III); Oak, White 0.16 kU/L (Class 0/I); Plantain, English 1.94 kU/L (Class III); Ragweed, Short/Common 1.76 kU/L (Class III)
== END | disposition home or self-care (01) ==
LOC: LAB 08:15
PROVIDERS: Nurse Practitioner Acute Care; PCP Internal Medicine; Referring Provider Nurse Practitioner Family; Visit Provider Nurse Practitioner Family
DX: J45.41 Moderate persistent asthma with (acute) exacerbation (principal); E56.9 Vitamin deficiency, unspecified
CPT/HCPCS: 36415; 82306; 82607; 84443; 86003

== ENCOUNTER → 2022-12-28 | Outpatient (CLI) | payer OTHER, SELFPAY ==
--- NOTE | 2022-12-28 14:34 | BI_ITS ---
MAMMOGRAPHY - BILATERAL SCREENING REASON FOR EXAM: Female, 47 years old. Routine annual screening examination. PERTINENT HISTORY: Non-contributory. History of prior right excisional breast biopsy. TECHNIQUE: Digital bilateral breast cole (3D mammographic acquisition) in the CC and MLO projections. 2-D mediolateral oblique (MLO) and craniocaudad (CC) views of both breasts were obtained. CAD: Full Field Digital Mammography with Computer Added Detection was performed. COMPARISON: Comparison is made with prior examination dated December 01, 2021 and November 20, 2020. FINDINGS: Breast Composition: There are scattered areas of fibroglandular density. There are no dominant masses or suspicious calcifications. Stable asymmetry of breast tissue where more breast tissue is seen in the upper-outer quadrant of the left breast as compared to the right side. Stable benign-appearing bilateral axillary lymph nodes. No other significant abnormalities are identified. There has been no significant change since the prior study. BI/SCRN MAMM (CAD)W/COLE BILAT IMPRESSION: Stable bilateral screening mammogram. Yearly follow-up mammogram recommended. (A) ASSESSMENT CATEGORY: BIRADS Category 2: Benign. A letter regarding these results will be sent to the patient by the facility within 30 days. Approximately 10% of breast cancers are not detected by mammography. A normal mammogram should not delay biopsy of a clinically suspicious abnormality. [id number] Electronically Signed: Valdez Burris MD at 13:54 EST ,
== END | disposition home or self-care (01) ==
LOC: OPBI 14:33
PROVIDERS: PCP Internal Medicine; Referring Provider Internal Medicine; Visit Provider Internal Medicine
DX: Z12.31 Encounter for screening mammogram for malignant neoplasm of breast (principal)
CPT/HCPCS: 77063; 77067

== ENCOUNTER 2023-01-17 06:58 | Day surgery (SDC) | payer OTHER, SELFPAY ==
--- NOTE | 2023-01-17 07:18 | PCM.HP.STD ---
[facility] - General General Date of Admission: 01/17/23 Date of Service: 01/17/23 Chief Complaint: Screening colonoscopy [facility] Nakia LONDONO, is a 47 F who presents today for screening colonoscopy. Has medical history of mild asthma and mild gastroesophageal reflux disease. She has never had a colonoscopy in the past. She has not had any abdominal pain, no cramping, no chest pain or shortness of breath. Overall she is in fairly good health. [facility] Medical History (Updated 01/13/23 @ 09:26 by Jameson Chirinos) Alcohol use Asthma Asthma Cholelithiasis Chronic neck pain Colon cancer screening Gastric reflux Hematoma History of Holter monitoring History of steroid therapy Hypocalcemia Non-smoker Obesity Palpitation Post viral syndrome Preventative health care Tachycardia Wears contact lenses Wears glasses Home Medications levonorgestrel 21 mcg/24 hours (8 yrs) 52 mg intrauterine device (Mirena) 1 insert intrauterine ONCE 11/01/17 [History Last Taken Unknown] albuterol sulfate 90 mcg/actuation aerosol inhaler 1 - 2 puff inhalation Q6H PRN shortness of breath or wheezing #8.5 grams 09/22/21 [Rx Last Taken Unknown] cetirizine 10 mg capsule (Zyrtec) 10 mg PO DAILY 03/10/22 [History Last Taken Unknown] calcium carbonate 500 mg-vitamin D3 3.125 mcg (125 unit) tablet 1 tab PO DAILY 04/07/22 [History Last Taken Unknown] mecobalamin (vitamin B12) 1,000 mcg chewable tablet 1,000 mcg PO DAILY 10/08/22 [History Last Taken Unknown] fluticasone furoate 100 mcg-vilanterol 25 mcg/dose inhalation powder (Breo Ellipta) 1 inh inhalation Q24H #60 ea 11/02/22 [Rx Last Taken Unknown] omeprazole 40 mg capsule,delayed release 40 mg PO DAILY #90 caps 11/03/22 [Rx Last Taken Unknown] Allergy/AdvReac Type Severity Reaction Status Date / Time No Known Allergies Allergy Verified 01/13/23 09:19 Family History Mother Blood clot in vein Father Hypertension High cholesterol Surgical History (Updated 01/13/23 @ 09:26 by Jameson Chirinos) H/O breast biopsy History of benign breast biopsy History of D&C Hx of cholecystectomy Social History current occupational status: employed current occupation: RN- [employer] Smoking Status: Never smoker Tobacco: How many years used: 2 how long ago did patient quit smokin alcohol intake: current alcohol intake frequency: holidays/special occasions only what type of physical activity do you participate in: walking frequency: 3-4 times per week seatbelt use: always do you feel safe at home: Yes additional social history: Single ROS Review of Systems ROS Unobtainable: other Constitutional Constitutional: Denies fatigue, fever(s), poor appetite, weight gain or weight loss ENT HEENT: Denies mouth lesions Cardiovascular Cardiovascular: Denies abdominal bloating, abdominal edema or abdominal pain Respiratory/Chest Respiratory/Chest: Denies change in mental status, change in phlegm color, chest congestion or chest tightness Gastrointestinal Gastrointestinal: Denies belching, bloating, change in bowel habits, change in stool character, chewing difficulty, coffee ground emesis, constipation, cramping, diarrhea, dyspepsia, dysphagia, early satiety, excessive flatus, fecal incontinence, heartburn, hematemesis, hematochezia, hemorrhoids, loose stools, melena, nausea, odynophagia, rectal bleeding, tenesmus, vomiting or weight changes Genitourinary Genitourinary: Denies abdominal discomfort, burning urination or itching Musculoskeletal Musculoskeletal: Reports as per HPI; Denies muscle weakness or myalgias Integumentary Integumentary: Denies jaundice Neurologic Neurologic: Denies lack of coordination or weakness Psychiatric Psychiatric: Denies confusion, depression, memory loss, mood swings, paranoia or suicidal ideation Endocrine Endocrinology: Denies systems reviewed and no addt'l complaints, except as documented Hematologic/Lymphatic Hematologic/Lymphatic: Denies anemia, easy bleeding, easy bruising or lymphadenopathy Allergic/Immunologic Allergic/Immunologic: Denies systems reviewed and no addt'l complaints, except as documented Physical Exam Const alert General Appearance: cooperative Orientation / Consciousness: oriented to person HEENT hearing grossly normal bilaterally Head and Scalp: normal to inspection Face and Sinus: face symmetric Nose: external nose normal Mouth: oral and palatal mucosa normal Eyes conjunctivae normal General Eye: normal appearance of both eyes Neck full ROM General: normal visual inspection Lymph Lymphatic: no lymphadenopathy noted Chest inspection of chest normal and palpation of chest normal Chest: symmetrical chest wall rise Resp normal respiratory effort Effort and Inspection: able to speak in complete sentences Cardio regular rate GI non-distended Percussion: normal to percussion Rectal Exam: deferred Neuro Speech: speech normal Gait (Neuro): normal gait Assessment & Plan Assessment/Plan (1) Colon cancer screening: PLAN: She was explained, risk, benefits include not withstanding bleeding, infection, sepsis, perforation, need for emergent surgery and . She will have an ASA of 2.
[2023-01-17] MEDS: Lactated Ringers 1,000 ML 15 ML IV (07:19)
[2023-01-17 07:21] VITALS: BP 119/55; PULSE 100; RESP 18; TEMP 37.2; O2SAT 99; BMI 36.4
[2023-01-17 07:25] LABS: Internal QC Validated? YES +Cl - CLEAR BKGD; Pregnancy, Urine Negative Negative
--- NOTE | 2023-01-17 08:00 | COLBX_PTH ---
PATIENT: KALLI LONDONO LOC: [facility] U#:[id number] AGE/SX: 47/F ROOM: RE01/17/[address]: Dr. Damaso Underwood DO : 1975 BED: DIS: 01/17/2023 SPEC #: [id number] RECD: 01/17/23 09:58 STATUS: WILL DAYANNA #: [id number] DARREL: 01/17/23 08:[address]: Damaso Underwood DEPT: SURGICAL PATHOLOGY RECD BY: Hui De Luna ENTERED: 01/17/23 10:59 SP TYPE: COLON BX JEREMIAH DR: Dr. Arnaldo Vega MD Tissues: COLON BIOPSY Procedures: Surgery Specimen Level IV HEADER OPERATION: Colonoscopy with biopsy PRE-OP DIAGNOSIS: Colon cancer screening TISSUE SUBMITTED: Splenic flexure polyp biopsy MICROSCOPIC DIAGNOSIS Colonic polyp at hepatic flexure, biopsy: Tubular adenoma. AM:chioma 01/18/2023 MICROSCOPIC DESCRIPTION Slides are reviewed. GROSS DESCRIPTION Received in fixative is one container labeled with the patient's name and designated splenic flexure polyp biopsy. The specimen consists of one irregular fragment of light lara soft tissue that measures 0.3 x 0.3 x 0.1 cm. The specimen is totally submitted in one cassette. / SJ:rg 01/17/2023 TC:5 CPT: 73200
--- NOTE | 2023-01-17 08:01 | OP.CCLET_ITS ---
01/17/2023 Arnaldo Vega MD [address] [place] [address] [place] [address] Re : Colonoscopy procedure for Lily Bassett Dear Dr. Vega This procedure was performed on Tuesday, January 17, 2023. My impressions and recommendations are as follows: Impressions : - One 5 mm polyp at the splenic flexure, removed with a jumbo cold forceps. Resected and retrieved. - The examination was otherwise normal on direct and retroflexion views. Recommendations : - Discharge patient to home. - Resume previous diet. - Continue present medications. - Await pathology results. - Repeat colonoscopy in 5 years for surveillance. My findings are described in the full procedure note, which is enclosed. If I can be of further assistance, please feel free to contact me at . Sincerely, Damaso Underwood, 01/17/2023 8:00:48 AM This report has been signed electronically.
--- NOTE | 2023-01-17 08:01 | OP.COLON_ITS ---
Patient Name: Lily Bassett Procedure Date: 01/17/2023 7:35 AM Date of : 1975 Age: 47 Procedure: Colonoscopy Indications: Screening for colorectal malignant neoplasm Providers: Damaso Underwood DO Referring MD: Arnaldo Vega MD Medicines: Monitored Anesthesia Care Patient Profile: This is a 47 year old female. Refer to note in patient chart for documentation of history and physical. Last Colonoscopy: none. The patient's first colonoscopy is today. Complications: No immediate complications. Procedure: Pre-Anesthesia Assessment: - Prior to the procedure, a History and Physical was performed, and patient medications and allergies were reviewed. The patient is competent. The risks and benefits of the procedure and the sedation options and risks were discussed with the patient. All questions were answered and informed consent was obtained. Patient identification and proposed procedure were verified by the physician. Mental Status Examination: normal. Airway Examination: normal oropharyngeal airway and neck mobility. Prophylactic Antibiotics: The patient does not require prophylactic antibiotics. Prior Anticoagulants: The patient has taken no anticoagulant or antiplatelet agents. ASA Grade Assessment: II - A patient with mild systemic disease. After reviewing the risks and benefits, the patient was deemed in satisfactory condition to undergo the procedure. The anesthesia plan was to use monitored anesthesia care (MAC). Immediately prior to administration of medications, the patient was re-assessed for adequacy to receive sedatives. The heart rate, respiratory rate, oxygen saturations, blood pressure, adequacy of pulmonary ventilation, and response to care were monitored throughout the procedure. The physical status of the patient was re-assessed after the procedure. After I obtained informed consent, the scope was passed under direct vision. Throughout the procedure, the patient's blood pressure, pulse, and oxygen saturations were monitored continuously. The pediatric colonoscope was introduced through the anus and advanced to the cecum, identified by the appendiceal orifice, IC valve and transillumination. The colonoscopy was performed without difficulty. The patient tolerated the procedure well. The quality of the bowel preparation was good. The ileocecal valve, appendiceal orifice, and rectum were photographed. Scope In: 7:45:29 AM Scope Withdrawal Time 0 hours 8 minutes 22 seconds Scope Out: 7:57:06 AM Total Procedure Duration Time 0 hours 11 minutes 37 seconds Findings: The perianal and digital rectal examinations were normal. A 5 mm polyp was found in the splenic flexure. The polyp was sessile. The polyp was removed with a jumbo cold forceps. Resection and retrieval were complete. Verification of patient identification for the specimen was done. Estimated blood loss was minimal. The exam was otherwise without abnormality on direct and retroflexion views. Impression: - One 5 mm polyp at the splenic flexure, removed with a jumbo cold forceps. Resected and retrieved. - The examination was otherwise normal on direct and retroflexion views. Recommendation: - Discharge patient to home. - Resume previous diet. - Continue present medications. - Await pathology results. - Repeat colonoscopy in 5 years for surveillance. Procedure Code(s): --- Professional --- 20869, Colonoscopy, flexible; with biopsy, single or multiple CPT copyright 2021 [employer]. All rights reserved. The codes documented in this report are preliminary and upon fleet driver review may be revised to meet current compliance requirements. Damaso Underwood DO 01/17/2023 8:00:48 AM This report has been signed electronically. Number of Addenda: 0 Note Initiated On: 01/17/2023 7:35 AM
[2023-01-17 08:04] VITALS: BP 109/66; BP 119/55; PULSE 93; RESP 18; TEMP 36.6; O2SAT 100
[2023-01-17 08:05] VITALS: BP 112/73; BP 119/55; PULSE 100; RESP 18; O2SAT 97
[2023-01-17 08:10] VITALS: BP 109/66; BP 119/55; PULSE 89; RESP 18; O2SAT 97
[2023-01-17 08:27] VITALS: BP 119/55
== END 2023-01-17 08:36 | disposition home or self-care (01) ==
LOC: EN 06:59 → AC 06:59
PROVIDERS: Anesthesiology; PCP Internal Medicine; Referring Provider Internal Medicine; Visit Provider Internal Medicine Gastroenterology
PROC: 0DJD8ZZ Inspection of Lower Intestinal Tract, Via Natural or Artificial Opening Endoscopic (ICD-10-PCS; CPT 45378; principal; 2023-01-17 07:55)
DX: Z12.11 Encounter for screening for malignant neoplasm of colon (principal); D12.3 Benign neoplasm of transverse colon; J45.909 Unspecified asthma, uncomplicated; K21.9 Gastro-esophageal reflux disease without esophagitis; E55.9 Vitamin D deficiency, unspecified; Z79.51 Long term (current) use of inhaled steroids; Z79.899 Other long term (current) drug therapy; Z87.891 Personal history of nicotine dependence
CPT/HCPCS: 45380; 81025; 88305; J7120; J2405

== ENCOUNTER → 2024-01-04 | Outpatient (CLI) | payer OTHER, SELFPAY ==
--- NOTE | 2024-01-04 12:57 | BI_ITS ---
MAMMOGRAPHY - BILATERAL SCREENING 3-D TOMOSYNTHESIS REASON FOR EXAM: Female, 48 years old. Routine screening PERTINENT HISTORY: History of hormone use.. TECHNIQUE: 2-D mammograms and 3-D Tomosynthesis of the breast (s) were performed. CAD was performed. COMPARISON: 11/20/2020 FINDINGS: The breast composition is composed of scattered fibroglandular density. Stable right normal pattern of more dense fibroglandular tissue in the left breast in the right. Stable lucent centered calcification in the right breast. No dense spiculated masses or suspicious microcalcifications are identified. No architectural distortion is identified. There is no skin thickening or retraction. There has been no significant change since the prior study. BI/SCRN MAMM (CAD)W/COLE BILAT IMPRESSION: No mammographic signs of malignancy. Routine yearly mammograms recommended. ASSESSMENT CATEGORY: BIRADS Category 1: Negative. A letter regarding these results will be sent to the patient by the facility within 30 days. FOLLOW UP RECOMMENDATION: Yearly follow up mammogram recommended. (A) Approximately 10% of breast cancers are not detected by mammography. A normal mammogram should not delay biopsy of a clinically suspicious abnormality. Electronically Signed: Ruddy Donaldson MD at 13:55 EST Reading Location ID and State: [facility] / [place] , Service support ,
== END | disposition home or self-care (01) ==
LOC: OPBI 12:57
PROVIDERS: PCP Internal Medicine; Referring Provider Internal Medicine; Visit Provider Internal Medicine
DX: Z12.31 Encounter for screening mammogram for malignant neoplasm of breast (principal)
CPT/HCPCS: 77063; 77067

== ENCOUNTER → 2024-07-05 | Outpatient (CLI) | payer OTHER, SELFPAY ==
[2024-07-05 10:52] LABS: Hematocrit 41.7 % (37-47); Hemoglobin 14.3 g/dL (12.0-15.0); Mean Corp Hgb Conc 34.3 g/dL (32-36); Mean Corpuscular Hgb 30.8 pg (27.0-32.0); Mean Corpuscular Volume 89.9 fL (81-99); Platelet Count 323 K/mm3 (150-450); RBC Distribution Width CV 12.6 % (11.6-14.6); RBC Distribution Width SD 41.1 fl (35.1-43.9); Red Blood Count 4.64 M/mm3 (4.2-5.4); White Blood Count 8.1 K/mm3 (4.4-11.0)
[2024-07-05 11:19] LABS: Hemoglobin A1c 5.2 % (<=5.6)
[2024-07-05 11:32] LABS: ALB/GLOB Ratio 1.5 RATIO (0.9-2.4); AST(SGOT) 27 U/L (<=31); Alanine Aminotransfer ALT/SGPT 21 U/L (<=34); Albumin, Serum 4.2 g/dL (3.5-5.0); Alkaline Phosphatase 76 U/L (35-104); Anion Gap 11 (5-15); BUN 8 mg/dL (4-19); BUN/Creat Ratio 12.1 RATIO (10-20); Carbon Dioxide 23.9 mmol/L (21.0-32.0); Chloride 102 mmol/L (98-108); Cholesterol 159 mg/dL (<=200); Creatinine, Serum 0.67 mg/dL (0.70-1.20); EST Glomerular Filtration Rate 108 (>60); Globulin 2.8 g/dL (2.2-4.2); Glucose 98 mg/dL (70-99); High Density Lipoprotein 59 mg/dL; Low Density Lipoprotein Calc. 80 mg/dL; Potassium 4.1 mmol/L (3.3-5.1); Protein, Total 7.1 g/dL (5.9-8.4); Sodium Level 137 mmol/L (133-145); Total Bilirubin 0.54 mg/dL (0.00-1.30); Triglycerides 103 mg/dL; Very Low Density Lipoprotein 21 mg/dL (5-40); cholesterol:hdl ratio screen 2.72
[2024-07-06 12:08] LABS: Insulin Level 9.9 uIU/mL (2.6-24.9)
== END | disposition home or self-care (01) ==
LOC: LAB 10:06
PROVIDERS: PCP Internal Medicine; Referring Provider Nurse Practitioner Family; Visit Provider Nurse Practitioner Family
DX: E66.812 Obesity, class 2 (principal); Z68.35 Body mass index [BMI] 35.0-35.9, adult; F41.9 Anxiety disorder, unspecified; F32.A Depression, unspecified; R53.81 Other malaise; R53.83 Other fatigue; E55.9 Vitamin D deficiency, unspecified; R73.01 Impaired fasting glucose; Z13.1 Encounter for screening for diabetes mellitus; Z13.29 Encounter for screening for other suspected endocrine disorder; Z13.21 Encounter for screening for nutritional disorder; Z13.228 Encounter for screening for other metabolic disorders; Z13.220 Encounter for screening for lipoid disorders
CPT/HCPCS: 36415; 80053; 80061; 82306; 83036; 83525; 84443; 85027

== ENCOUNTER → 2025-01-07 | Outpatient (CLI) | payer OTHER, SELFPAY ==
--- NOTE | 2025-01-07 12:30 | BI_ITS ---
EXAM: SCRN MAMM (CAD)W/COLE BILAT DATE: 01/07/2025 CLINICAL HISTORY: F, Age 49 y/o , BREAST CANCER SCREENING TECHNIQUE: Procedure Code: [id number] Modality: MG Procedure: SCRN MAMM (CAD)W/COLE BILAT COMPARISON: Prior exam(s) dated mammogram dated 01/04/2024, 12/28/2022, and 12/01/2021. FINDINGS: TISSUE DENSITY: There are scattered areas of fibroglandular density. Bilateral Breast Mammographic Findings: There are no suspicious masses, suspicious cluster of microcalcifications, architectural distortion or secondary signs of malignancy identified in either breast. Benign-appearing round microcalcifications are seen in both breasts. A benign-appearing macrocalcification is seen in the right breast. BI/SCRN MAMM (CAD)W/COLE BILAT IMPRESSION: Benign screening mammogram OVERALL FINAL ASSESSMENT BI-RADS 2: BENIGN RECOMMENDATION: Routine annual follow-up in 1 Year Additional Recommendation none A letter with findings and recommendations will be mailed to the patient. Reading Location: [id number]
== END | disposition home or self-care (01) ==
LOC: OPBI 12:18
PROVIDERS: PCP Internal Medicine; Referring Provider Internal Medicine; Visit Provider Internal Medicine
DX: Z12.31 Encounter for screening mammogram for malignant neoplasm of breast (principal)
CPT/HCPCS: 77063; 77067